=== PATIENT | female | born 1950 | race Caucasian/White ===

== ENCOUNTER 2016-07-03 17:28 | Inpatient (IN) | payer MEDICARE ==
[~2016-07-03] VITALS: Ht 160 cm; Wt 54.5 kg
[~2016-07-03 17:28] MED LIST: Z.0.NO CURRENT MEDS
[2016-07-03 17:30] VITALS: BP 119/76; PULSE 87; RESP 16; TEMP 97.9; O2SAT 97
--- NOTE | 2016-07-03 17:53 | PD ---
HPI . s/p fall Chief Complaint: Fall Time Seen by Provider: 17:52 Travel History International Travel<30 days: No Contact w/Intl Traveler<30days: No Traveled to known affect area: No History of Present Illness HPI 65-year-old female who reports no significant past medical history other than chronic left knee pain here with complaints of falling about 5:30 PM this evening. Me that she was picking up some food from [employer] when she was walking back home she slipped on uneven pavement and fell on outstretched right wrist and hit the right side of her for head on the concrete. She denies any loss of consciousness or syncopal episode. Here in the ED she is complaining of right wrist pain, where there is an obvious deformity. She tells me that her pain is about a 10/10 in the wrist. Luckily she is left handed dominant. She denies any fever, chills, chest pain, nausea, vomiting, diarrhea, constipation or abdominal pain. She denies any weakness or fatigue. PFSH Past Medical History ?: Not Menopausal: Yes Past Surgical History Cholecystectomy: Yes Joint Replacement: Yes (LEFT KNEE) Social History Alcohol Use: No Tobacco Use: Yes (OCCASIONAL) Substance Use: No Allergies-Medications (Allergen,Severity, Reaction): Coded Allergies: No Known Allergies (Verified , 07/03/16) Reported Meds & Prescriptions Reported Meds & Active Scripts Active Reported No Current Meds (Miscellaneous Medication) [facility] General / Constitutional: No: Fever Eyes: No: Visual changes HENT: No: Headaches Cardiovascular: No: Chest Pain or Discomfort Respiratory: No: Shortness of Breath Gastrointestinal: No: Abdominal Pain Genitourinary: No: Dysuria Musculoskeletal: Positive: Pain (right wrist pain/ right side of head hurting) Skin: No Rash Neurologic: No: Weakness Psychiatric: No: Depression Endocrine: No: Polydipsia Hematologic/Lymphatic: No: Easy Bruising Physical Exam Narrative GENERAL: AAO x 3, no acute distress, Well-nourished, well-developed patient. SKIN: Warm and dry. No visible rashes. Small 0.5cm laceration on the right frontal area. Small abrasions on the forehead. HEAD: Normocephalic and atraumatic. EYES: No scleral icterus. No injection or drainage. EOM intact, PERRLA ENT: No nasal drainage noted. Mucous membranes pink. Airway patent. NECK: Supple, trachea midline. No JVD. CARDIOVASCULAR: Regular rate and rhythm without murmurs, gallops, or rubs. RESPIRATORY: Breath sounds equal bilaterally. No accessory muscle use. No rhonchi or rales. GASTROINTESTINAL: Abdomen soft, non-tender, nondistended. EXTREMITIES: right wrist + edema, ecchymosis and obvious deformity. + pain with slight touch BACK: Nontender without obvious deformity. No CVA tenderness. PSYCH: AAO x 3, normal affect. LACERATION LOCATION: [-] Right side for head temporal area LENGTH: [-] 0.5 cm NUMBER OF STITCHES/OLYA: Dermabond and Steri-Strips used REPAIR: The area of the laceration was prepped with Betadine and saline . The wound was copiously irrigated and explored without evidence of foreign body, tendon injury or neurovascular injury. The wound was closed using Steri-Strips and Dermabond. This was a single layer repair. A sterile dressing was applied. The patient was advised to keep the dressing clean and dry. Patient tolerated the procedure well. Data Data Last Documented VS Vital Signs Date Time Temp Pulse Resp B/P Pulse Ox O2 Delivery O2 Flow Rate FiO2 07/03/16 22:45 18 07/03/16 17:30 97.9 87 119/[address] Brain W/O Iv Contrast(Rout) (07/03/16 ) Wrist, Complete (Huo1exc) (07/03/16 18:02) Oxycodone-Acetamin 5-325 Mg (Percocet (07/03/16 18:15) Admit Order (Ed Use Only) (07/03/16 20:03) Ct Wrist W/O Contrast (07/03/16 ) Electrocardiogram (07/03/16 ) Complete Blood Count With Diff (07/03/16 20:04) Comprehensive Metabolic Panel (07/03/16 20:04) Coag Profile (07/03/16 20:04) Urinalysis - C+S If Indicated (07/03/16 20:04) Chest, Single Ap (07/03/16 ) Type And Screen (07/03/16 20:04) Admit To Inpatient (07/03/16 ) Vital Signs (Adult) Q4H (07/03/16 20:12) Activity Oob With Assistance (07/03/16 20:12) Architectural Practice Manager / Telemetry .CONTINUOUS (07/03/16 20:12) Diet Npo (07/04/16 Breakfast) Sodium Chloride 0.9% Flush (Ns Flush) (07/03/16 20:15) Sodium Chloride 0.9% Flush (Ns Flush) (07/03/16 21:00) Ondansetron Inj (Zofran Inj) (07/03/16 20:15) Basic Metabolic Panel (Bmp) (07/04/16 06:00) Complete Blood Count With Diff (07/04/16 06:00) Case Management Consult (07/03/16 20:12) Scd Bilateral/Knee High AMY.BID (07/03/16 20:12) Naloxone Inj (Narcan Inj) (07/03/16 20:15) Inpatient Certification (07/03/16 ) Morphine Inj (Morphine Inj) (07/03/16 20:30) Consult Orthopedic (07/03/16 ) Oxycodone-Acetamin 5-325 Mg (Percocet (07/03/16 22:00) Acetaminophen (Tylenol) (07/03/16 22:00) ^ Splint (07/03/16 21:59) Labs Laboratory Tests Test 07/03/16 20:05 White Blood Count 8.5 TH/MM3 Red Blood Count 4.36 MIL/MM3 Hemoglobin 13.4 GM/DL Hematocrit 39.5 % Mean Corpuscular Volume 90.6 FL Mean Corpuscular Hemoglobin 30.8 PG Mean Corpuscular Hemoglobin 34.0 % Concent Red Cell Distribution Width 13.3 % Platelet Count 473 TH/MM3 Mean Platelet Volume 6.8 FL Neutrophils (%) (Auto) 66.3 % Lymphocytes (%) (Auto) 24.2 % Monocytes (%) (Auto) 7.2 % Eosinophils (%) (Auto) 0.8 % Basophils (%) (Auto) 1.5 % Neutrophils # (Auto) 5.6 TH/MM3 Lymphocytes # (Auto) 2.1 TH/MM3 Monocytes # (Auto) 0.6 TH/MM3 Eosinophils # (Auto) 0.1 TH/MM3 Basophils # (Auto) 0.1 TH/MM3 CBC Comment DIFF FINAL Differential Comment Prothrombin Time 10.8 SEC Prothromb Time International 1.0 RATIO Ratio Activated Partial 24.2 SEC Thromboplast Time Sodium Level 135 MEQ/L Potassium Level 4.1 MEQ/L Chloride Level 99 MEQ/L Carbon Dioxide Level 25.4 MEQ/L Anion Gap 11 MEQ/L Blood Urea Nitrogen 19 MG/DL Creatinine 0.80 MG/DL Estimat Glomerular Filtration 72 ML/MIN Rate Random Glucose 94 MG/DL Calcium Level 8.5 MG/DL Total Bilirubin 0.2 MG/DL Aspartate Amino Transf 14 U/L (AST/SGOT) Alanine Aminotransferase 19 U/L (ALT/SGPT) Alkaline Phosphatase 76 U/L Total Protein 7.5 GM/DL Albumin 3.9 GM/DL [facility] Medical Decision Making Medical Screen Exam Complete: Yes Emergency Medical Condition: Yes Medical Record Reviewed: Yes Differential Diagnosis wrist fracture, forehead laceration, fall, less likely SAH, Narrative Course 65-year-old female who reports no significant past medical history other than chronic left knee pain here with complaints of falling about 5:30 PM this evening. Me that she was picking up some food from [employer] when she was walking back home she slipped on uneven pavement and fell on outstretched right wrist and hit the right side of her for head on the concrete. She denies any loss of consciousness or syncopal episode. Here in the ED she is complaining of right wrist pain, where there is an obvious deformity. She tells me that her pain is about a 10/10 in the wrist. Luckily she is left handed dominant. She denies any fever, chills, chest pain, nausea, vomiting, diarrhea, constipation or abdominal pain. She denies any weakness or fatigue. Patient seen and examined. Recommend x-ray of the right wrist and CT scan of the head. Laceration was cleaned and repaired with Dermabond as it was small. Xray of wrist : + displaced angulated fracture: recommend ortho, call placed Discussed with Dr. Pardo. She will need to be nothing by mouth after midnight. Will be placed a sugar tong splint. Ice and elevation. CT of the wrist was recommended. Preop labs ordered. Admission at [facility] was recommended. I discussed with Dr. JAMES. Patient was admitted to [facility] in anticipation of surgery tomorrow. I discussed all this with the patient She was understanding. Patient verbalized understanding of instructions, questions were answered, and thanked me for their care. I advised them if their condition worsens, please return to the nearest emergency room for further care. Last 24 hours Impressions Wrist X-Ray 07/03/16 1802 Signed Impressions: Service Date/Time: Sunday, July 03, 2016 18:22 - CONCLUSION: Angulated impacted fracture of the distal radius involving the articulating surface. Satisfactory carpal alignment. Jony Arteaga MD Head CT 07/03/16 0000 Signed Impressions: Service Date/Time: Sunday, July 03, 2016 18:13 - CONCLUSION: Visualized portion right maxillary sinus is opacified. Right frontal soft tissue swelling. Otherwise normal evaluation of the head; no evidence of acute intracranial trauma, fracture or extra-axial fluid collections. Jony Arteaga MD Procedures Procedure Narrative LACERATION LOCATION: [-] Right side for head temporal area LENGTH: [-] 0.5 cm NUMBER OF STITCHES/OLYA: Dermabond and Steri-Strips used REPAIR: The area of the laceration was prepped with Betadine and saline . The wound was copiously irrigated and explored without evidence of foreign body, tendon injury or neurovascular injury. The wound was closed using Steri-Strips and Dermabond. This was a single layer repair. A sterile dressing was applied. The patient was advised to keep the dressing clean and dry. Patient tolerated the procedure well. Diagnosis Primary Impression: Wrist fracture, closed Qualified Code: S62.101A - Wrist fracture, closed, right, initial encounter Additional Impression: Forehead laceration Qualified Code: S01.81XA - Forehead laceration, initial encounter Admitting Information Admitting Physician Requests: Admit Patient Instructions: General Instructions Condition: Stable Sobia Hopkins Jul 03, 2016 17:53
[2016-07-03] MEDS ORDERED: oxyCODONE/ACETAMINOPHEN 5 MG/325 MG TAB PO ONE (18:15)
--- NOTE | 2016-07-03 18:39 | RADHPO ---
EXAM DATE/TIME: 07/03/2016 18:13 [facility] COMPARISON: No previous studies available for comparison. INDICATIONS : Trauma fall. RADIATION DOSE: 63.17 CTDIvol (mGy) MEDICAL HISTORY : None SURGICAL HISTORY : None. ENCOUNTER: Initial ACUITY: 1 day PAIN SCALE: 5/10 LOCATION: cranial TECHNIQUE: Multiple contiguous axial images were obtained of the head. Using automated exposure control and adj ustment of the mA and/or kV according to patient size, radiation dose was kept as low as reasonably a chievable to obtain optimal diagnostic quality images. FINDINGS: CEREBRUM: The ventricles are normal for age. No evidence of midline shift, mass lesion, hemorrhage or acute in farction. No extra-axial fluid collections are seen. POSTERIOR FOSSA: The cerebellum and brainstem are intact. The 4th ventricle is midline. The cerebellopontine angle i s unremarkable. EXTRACRANIAL: Mild soft tissue swelling is identified in the right frontal region. The visualized portion of the or bits is intact. Visualized portion of the right maxillary sinus is opacified. SKULL: The calvaria is intact. No evidence of skull fracture. CONCLUSION: Visualized portion right maxillary sinus is opacified. Right frontal soft tissue swelling. Otherwise normal evaluation of the head; no evidence of acute intracranial trauma, fracture or extra- axial fluid collections. Jony Arteaga MD on July 03, 2016 at 18:35 Board Certified Radiologist. This report was verified electronically.
--- NOTE | 2016-07-03 18:54 | RADHPO ---
EXAM DATE/TIME: 07/03/2016 18:22 [facility] COMPARISON: No previous studies available for comparison. INDICATIONS : Trauma, fall. MEDICAL HISTORY : None. SURGICAL HISTORY : None. ENCOUNTER: Initial ACUITY: 1 day PAIN SCORE: 9/10 LOCATION: Right wrist FINDINGS: A compacted angulated fractures identified of the distal radius. Fracture extends into the articulate surface of the radius. Carpal alignment is well-maintained. Ulna appears intact. CONCLUSION: Angulated impacted fracture of the distal radius involving the articulating surface. Satisfactory carpal alignment. Jony Arteaga MD on July 03, 2016 at 18:51 Board Certified Radiologist. This report was verified electronically.
[2016-07-03] MEDS ORDERED: SODIUM CHLORIDE 0.9% FLUSH 5 ML FLUSH FLUSH PRN (20:15)
[2016-07-03] MEDS ORDERED: NALOXONE HCL 0.4 MG/ML AMP IV PRN (20:15)
[2016-07-03] MEDS ORDERED: ONDANSETRON HCL 4 MG/2 ML VIAL IVP PRN (20:15)
[2016-07-03 20:47] LABS: AUTOMATED NEUTROPHIL # 5.6 TH/MM3 (1.8-7.7); BASOPHIL # 0.1 TH/MM3 (0-0.2); BASOPHIL % 1.5 % (0.0-2.0); EOSINOPHIL # 0.1 TH/MM3 (0-0.4); EOSINOPHIL % 0.8 % (0.0-4.0); HEMATOCRIT 39.5 % (35.0-46.0); HEMO FLAGS DIFF FINAL; LYMPH % 24.2 % (9.0-44.0); LYMPHOCYTE # 2.1 TH/MM3 (1.0-4.8); MEAN CELL VOLUME 90.6 FL (80.0-100.0); MEAN CORPUSCULAR HEMOGLOBIN 30.8 PG (27.0-34.0); MONO % 7.2 % (0.0-8.0); NEUT % 66.3 % (16.0-70.0); PLATELET COUNT 473 TH/MM3 (150-450); RED BLOOD COUNT 4.36 MIL/MM3 (4.00-5.30); RED CELL DISTRIBUTION WIDTH 13.3 % (11.6-17.2); WHITE BLOOD COUNT 8.5 TH/MM3 (4.0-11.0)
--- NOTE | 2016-07-03 20:50 | RADHPO ---
EXAM DATE/TIME: 07/03/2016 20:11 [facility] COMPARISON: No previous studies available for comparison. INDICATIONS : Trauma, fall. RADIATION DOSE: 10.91 CTDIvol (mGy) MEDICAL HISTORY : None SURGICAL HISTORY : None. ENCOUNTER: Initial ACUITY: 1 day PAIN SCALE: 10/10 LOCATION: Right wrist TECHNIQUE: Volumetric scanning of the wrist was performed. Using automated exposure control and adjustment of t he mA and/or kV according to patient size, radiation dose was kept as low as reasonably achievable to obtain optimal diagnostic quality images. FINDINGS: BONES: A compacted comminuted fracture is identified of the distal radius. The fracture extends into the rad iocarpal joint. There is positive ulnar variance. JOINTS: Radiocarpal joint involvement from fractured distal radius as described. Carpal alignment is well-pre served. SOFT TISSUES: Muscles, tendons, and neurovascular structures are grossly unremarkable. No evidence of mass, organi zed fluid collection or foreign body. CONCLUSION: Compacted comminuted fracture the distal radius involving the radiocarpal joint. Jony Arteaga MD on July 03, 2016 at 20:47 Board Certified Radiologist. This report was verified electronically.
--- NOTE | 2016-07-03 20:53 | RADHPO ---
EXAM DATE/TIME: 07/03/2016 20:19 [facility] COMPARISON: No previous studies available for comparison. INDICATIONS : Trauma to chest post fall today MEDICAL HISTORY : None. SURGICAL HISTORY : None. ENCOUNTER: Initial ACUITY: 1 day PAIN SCORE: 0/10 LOCATION: Bilateral chest FINDINGS: Lungs are well aerated without evidence of pneumothorax. There is no evidence of consolidating airspa ce disease. Interstitial prominence is noted. Heart and mediastinal structures are unremarkable. Clavicles are intact. There is no evidence of displaced rib fracture. CONCLUSION: Interstitial lung disease which appears chronic. No evidence of acute cardiopulmonary process. No evidence of displaced rib fracture. Jony Arteaga MD on July 03, 2016 at 20:50 Board Certified Radiologist. This report was verified electronically.
[2016-07-03 20:54] LABS: CHLORIDE 99 MEQ/L (98-107); POTASSIUM 4.1 MEQ/L (3.5-5.1); SODIUM (NA) 135 MEQ/L (136-145)
[2016-07-03 20:58] LABS: ANION GAP 11 MEQ/L (5-15); BICARBONATE 25.4 MEQ/L (21.0-32.0); BLOOD UREA NITROGEN 19 MG/DL (7-18)
[2016-07-03] MEDS: SODIUM CHLORIDE 0.9% FLUSH 5 ML FLUSH FLUSH SCH (21:00)
[2016-07-03 21:01] LABS: ALT (GPT) 19 U/L (10-53); APTT (PATIENT) 24.2 SEC (24.3-30.1); AST (GOT) 14 U/L (15-37); GLOMERULAR FILTRATION RATE 72 ML/MIN (>89); PROTHROMBIN TIME - PATIENT 10.8 SEC (9.8-11.6)
[2016-07-03 21:02] LABS: TOTAL BILIRUBIN ADULT 0.2 MG/DL (0.2-1.0)
[2016-07-03 21:04] LABS: ALKALINE PHOSPHATASE 76 U/L (45-117)
[2016-07-03] MEDS ORDERED: ACETAMINOPHEN 500 MG CPLT PO PRN (22:00)
[2016-07-03] MEDS ORDERED: oxyCODONE/ACETAMINOPHEN 5 MG/325 MG TAB PO PRN (22:00)
[2016-07-03 22:05] VITALS: BP 119/63; PULSE 76; RESP 16; O2SAT 96
[2016-07-03] MEDS: MORPHINE SULFATE 4 MG/ML INJ IV PUSH PRN (22:10)
[2016-07-04 00:19] VITALS: BP 116/62; PULSE 75; RESP 18; O2SAT 96
[2016-07-04] MEDS: MORPHINE SULFATE 4 MG/ML INJ IV PUSH PRN ×4 (02:05→13:56)
[2016-07-04 02:21] VITALS: BP 105/56; PULSE 71; RESP 18; O2SAT 97
[2016-07-04 04:47] VITALS: BP 116/60; PULSE 78; RESP 18; O2SAT 98
[2016-07-04 05:28] LABS: AUTOMATED NEUTROPHIL # 6.2 TH/MM3 (1.8-7.7); BASOPHIL # 0.1 TH/MM3 (0-0.2); EOSINOPHIL # 0.1 TH/MM3 (0-0.4); EOSINOPHIL % 0.7 % (0.0-4.0); HEMATOCRIT 36.9 % (35.0-46.0); HEMO FLAGS DIFF FINAL; LYMPH % 20.4 % (9.0-44.0); LYMPHOCYTE # 1.8 TH/MM3 (1.0-4.8); MEAN CELL VOLUME 89.7 FL (80.0-100.0); MEAN CORPUSCULAR HEMOGLOBIN 30.4 PG (27.0-34.0); MEAN CORPUSCULAR HGB CONC 33.9 % (32.0-36.0); MONO % 8.9 % (0.0-8.0); PLATELET COUNT 439 TH/MM3 (150-450); RED BLOOD COUNT 4.11 MIL/MM3 (4.00-5.30); RED CELL DISTRIBUTION WIDTH 13.2 % (11.6-17.2)
[2016-07-04 05:38] LABS: POTASSIUM 3.8 MEQ/L (3.5-5.1)
[2016-07-04 05:41] LABS: BICARBONATE 26.4 MEQ/L (21.0-32.0)
[2016-07-04 07:11] VITALS: BP 108/57; PULSE 79; RESP 18; TEMP 97.5; O2SAT 98
[2016-07-04] MEDS: SODIUM CHLORIDE 0.9% FLUSH 5 ML FLUSH FLUSH SCH (07:21)
[2016-07-04 09:35] VITALS: BP 115/62
[2016-07-04] MEDS ORDERED: *morphine SULFATE 8 MG/ML PERIprocedure ONLY ONE (11:43)
[2016-07-04] MEDS ORDERED: MORPHINE SULFATE 8 MG/ML INJ IV PUSH ONE (11:46)
[2016-07-04] MEDS ORDERED: PHENYLEPH/NS 1000 MCG/10 ML SYR IV ONE (12:00)
[2016-07-04] MEDS ORDERED: ePHEDrine/NS 25 MG/5 ML SYR IV ONE (12:00)
[2016-07-04] MEDS ORDERED: PROPOFOL 200 MG/20 ML AMP IV ONE (12:00)
[2016-07-04] MEDS ORDERED: ONDANSETRON HCL 4 MG/2 ML VIAL IV PUSH ONE (12:00)
[2016-07-04] MEDS ORDERED: BUPIVACAINE HCL PF 0.25% 30 ML VIAL ONE ×2 (16:19→17:19)
[2016-07-04] MEDS ORDERED: LIDOCAINE HCL 1% 50 ML VIAL ONE ×2 (16:20→17:20)
[2016-07-04] MEDS ORDERED: GENTAMICIN SULFATE 80 MG/2 ML VIAL ONE ×2 (16:20→17:20)
[2016-07-04] MEDS ORDERED: ceFAZolin INJ 1,000 MG VIAL IV ONE (17:57)
--- NOTE | 2016-07-04 18:44 | PD.OP ---
cc: Duran Lane MD Operative Report Date of Surgery: Jul 04, 2016 Preoperative Diagnosis: Fracture right distal radius, comminuted, three-part Postoperative Diagnosis: Same Procedure: Open treatment internal fixation right distal radius with volar plate and screws Anesthesia: Gen. Surgeon: Duran Lane Shredder Picker(s): RAYRAY Lopez Operation and Findings: EBL: 50 cc INDICATION: This patient is a 65-year-old female who fell yesterday. She sustained a displaced right distal radius fracture with an intra-articular component. She presents for surgical treatment. NOTE: Arlyn Lopez PA-C was present for the entire surgical procedure as my records management assistant. In my medical opinion her skill and care was necessary for proper management of this patient. PROCEDURE: The patient was brought to the operating room and anesthetized in the supine position. This patient was positioned with the arm on the arm table. Fluoroscopy was used for visualization. A timeout was done. Antibiotics were given within 1 hour time window. The right arm was scrubbed with alcohol followed by Hibiclens followed by ChloraPrep and draped sterilely. A tourniquet was placed after exsanguination the tourniquet was inflated to 250 mmHg. A volar incision was made along the flexor carpi radialis tendon. The pronator quadratus was lifted from its radial attachment. The fracture was visualized. This was brought into a reduced position and held. A volar plate was positioned and held provisionally. Intraoperative x-ray showed anatomic alignment. Multiple distal locking screws were placed as well as shaft screws. The fracture was reduced anatomically. Intraoperative x-rays were obtained confirming the same. The tourniquet was let down. Hemostasis was controlled with the bipolar cautery. The wound was dry. The fascia was closed with 2-0 Vicryl suture. The skin and subcutaneous tissue was approximated with interrupted 3-0 nylon in a mattress fashion. A sterile dressing and a splint was applied. The patient was awakened and taken to the recovery room in satisfactory condition. COMPANY: [employer], locking plate Duran Lane MD Jul 04, 2016 18:43
[2016-07-04] MEDS ORDERED: DO NOT ADM ANY ANTICOAGULANT DRUGS XX PRN (19:15)
[2016-07-04] MEDS ORDERED: fentaNYL CITRATE 250 MCG/5 ML AMP ONE (19:20)
--- NOTE | 2016-07-04 19:21 | RADRPT ---
EXAM DATE/TIME: 07/04/2016 18:32 [facility] COMPARISON: No previous studies available for comparison. INDICATIONS : ORIF, Right Wrist. MEDICAL HISTORY : None. SURGICAL HISTORY : None. ENCOUNTER: Initial ACUITY: 1 day PAIN SCORE: Non-responsive. LOCATION: Right Wrist. FINDINGS: Side plate and multiple screws traverse the distal radius with excellent anatomical alignment of the fracture fragments. CONCLUSION: Intact postsurgical changes for technique. Gaye Baptiste MD on July 04, 2016 at 19:19 Board Certified Radiologist. This report was verified electronically.
[2016-07-04] MEDS ORDERED: LACTATED RINGER'S 1000 ML INJ 1,000 ML IV SCH (19:23)
[2016-07-04] MEDS ORDERED: NORC5TAB PO (19:25)
[2016-07-04] MEDS ORDERED: diphenhydrAMINE HCL 25 MG CAP PO PRN (19:30)
[2016-07-04] MEDS ORDERED: MAGNESIUM HYDROXIDE SUSP 30 ML CUP PO PRN (19:30)
[2016-07-04] MEDS ORDERED: NALOXONE HCL 0.4 MG/ML AMP IV PRN (19:30)
[2016-07-04] MEDS ORDERED: SODIUM CHLORIDE 0.9% FLUSH 5 ML FLUSH IVF PRN (19:30)
[2016-07-04] MEDS ORDERED: ACETAMINOPHEN/HYDROcodone 325 MG/5 MG TAB PO PRN ×2 (19:30)
[2016-07-04] MEDS ORDERED: ONDANSETRON HCL 4 MG/2 ML VIAL IVP PRN (19:30)
[2016-07-04] MEDS ORDERED: Post-op Orders (for Pharmacy) MISC XX ONE (19:30)
[2016-07-04] MEDS ORDERED: ZOLPIDEM TARTRATE 5 MG TAB PO PRN (19:30)
[2016-07-04] MEDS ORDERED: MORPHINE SULFATE 30 MG/30 ML PCA IV SCH (19:30)
[2016-07-04] MEDS ORDERED: MORPHINE SULFATE 8 MG/ML INJ IV PUSH PRN (19:30)
[2016-07-04] MEDS: SODIUM CHLORIDE 0.9% FLUSH 5 ML FLUSH IVF SCH (21:55)
[2016-07-04] MEDS: DOCUSATE SODIUM 50 MG/SENNA 8.6 MG TAB PO SCH (21:56)
[2016-07-04] MEDS: PCA - TOTAL MG MORPHINE DELIVERED PER SHIFT SCH (21:56)
--- NOTE | 2016-07-04 22:22 | MB ---
cc: JUAN EPPERSON DATE OF CONSULTATION: 07/04/2016 REASON FOR CONSULTATION Fracture of the distal radius. HISTORY This patient is a very pleasant 65-year-old female. She presented to the emergency room after falling at about 05:30 yesterday afternoon. Apparently she was picking up some food from [employer] and was walking back home when she tripped on an even pavement. She fell with her outstretched right wrist and hand. She denied any loss of consciousness. She presented complaining of right wrist pain. There was an obvious deformity. The patient apparently has a chronic left leg condition which may have contributed to her fall. She denies any constitutional symptoms. PAST SURGICAL HISTORY 1. Cholecystectomy. 2. Previous left total knee replacement surgery. SOCIAL HISTORY Denies alcohol. Notes occasional ethanol. Denies substance abuse. ALLERGIES TO MEDICATIONS NONE ARE KNOWN. ACTIVE MEDICATIONS She indicates no current medications. REVIEW OF SYSTEMS GENERAL: No fever. EYES: No visual changes. HEENT: No headache. CARDIOVASCULAR: No chest pain or discomfort. RESPIRATORY: No shortness of breath. GASTROINTESTINAL: No abdominal pain. GENITOURINARY: No dysuria. MUSCULOSKELETAL: Right wrist pain with deformity, now presently in a splint. SKIN: No rashes. NEUROLOGIC: No weakness. PSYCHIATRIC: No depression. ENDOCRINE: No polydipsia. PHYSICAL EXAMINATION GENERAL: Alert, cooperative, elderly female appearing at or older than her stated age. HEENT: Normocephalic, atraumatic. Pupils equal, round, reactive to light and accommodation. Extraocular motions intact. NECK: Supple. CHEST: Clear. HEART: Regular rate and rhythm. ABDOMEN: Soft, nontender, normoactive sounds. MUSCULOSKELETAL: She has a laceration near her right temporal region which has been had been Dermabonded with Steri-Strips. She has a chronic deformity of her left knee. Her right wrist is in a splint. She wiggles her fingers. Her cap refill is normal. IMAGING X-rays reviewed and review of radiologist's interpretation shows a comminuted intraarticular fracture of the right distal radius with displacement. CT scan also confirms same of the intraarticular component which is not significantly displaced intraarticularly. IMPRESSION Fracture right distal radius, intraarticular, three-part. PLAN Open treatment, internal fixation right distal radius with volar plates and screws. CONSENT The risks of surgery including infection, bleeding, loss of motion, continued pain, need for further surgery, neurologic and vascular injury. The patient understands these issues and wishes to press on with surgery as outlined above. MD RENALDO Kelly/BJF /6:47 PM /9:53 PM
--- NOTE | 2016-07-04 23:51 | EKG ---
Date Performed: 07/03/2016 Time Performed: 20:31:30 PTAGE: 65 years EKG: Sinus rhythm ST junctional depression is nonspecific Borderline ECG PREVIOUS TRACING : 08/15/1992 13.07 Compared to prior tracing no significant change DOCTOR: Isauro Hutchison Interpretating Date/Time 07/04/2016 23:49:37
[2016-07-05 00:11] VITALS: BP 120/65; PULSE 98; RESP 20; TEMP 98.1; O2SAT 94
[2016-07-05 04:00] VITALS: BP 132/70; PULSE 76; RESP 16; TEMP 97.9; O2SAT 95
[2016-07-05] MEDS: PCA - TOTAL MG MORPHINE DELIVERED PER SHIFT SCH (05:19)
--- NOTE | 2016-07-05 07:55 | PD.ORT.PN ---
Subjective Subjective Remarks No complaints Objective Vitals Vital Signs Date Time Temp Pulse Resp B/P Pulse Ox O2 Delivery O2 Flow Rate FiO2 07/05/16 07:07 Room Air 07/05/16 04:00 97.9 76 16 132/70 95 07/05/16 00:11 98.1 98 20 120/65 94 07/04/16 20:05 16 07/04/16 20:02 90 12 122/67 94 Nasal Cannula 4 07/04/16 19:45 93 12 127/69 94 Nasal Cannula 4 07/04/16 19:30 92 12 112/63 93 Nasal Cannula 4 07/04/16 19:15 97.0 91 12 124/64 96 Nasal Cannula 4 07/04/16 14:00 98.5 81 17 128/71 95 07/04/16 10:08 97 07/04/16 10:07 97 Nasal Cannula 2 07/04/16 10:07 98.5 81 17 143/85 89 07/04/16 09:35 78 18 115/62 98 I/O 07/04/16 07/04/16 07/04/16 07/05/16 07/05/16 07/05/16 07:00 15:00 23:00 07:00 15:00 23:00 Intake Total 1400 ml 800 ml Output Total 75 ml Balance 1325 ml 800 ml Intake Oral 240 ml 240 ml IV Total 360 ml 560 ml Other 800 ml Output Urine Total 0 ml Estimated Blood Loss 75 ml Other 0 ml # Voids 1 1 Result Diagram: 07/04/16 0520 07/04/16 0520 Objective Remarks Appears very comfortable. Dressing intact. Mild ecchymosis. No significant swelling. Sensation normal Assessment & Plan Ortho Post Op Day #: 1 Problem List: Assessment and Plan Fracture right distal radius. ORIF, volar plate: POD #1. PLAN: Discharge to home Continue with sling and splint Follow-up in 3 weeks. Anticipate going to removable splint at that time if everything is okay Duran Lane MD Jul 05, 2016 07:55
[2016-07-05 08:00] VITALS: BP 109/58; PULSE 84; RESP 18; TEMP 97; O2SAT 93
[2016-07-05 08:10] VITALS: PULSE 81
[2016-07-05] MEDS: SODIUM CHLORIDE 0.9% FLUSH 5 ML FLUSH IVF SCH (08:15)
[2016-07-05] MEDS: DOCUSATE SODIUM 50 MG/SENNA 8.6 MG TAB PO SCH (08:15)
[2016-07-05] MEDS ORDERED: MULTIVITAMINS/MINERALS THERAPEUTIC TAB PO SCH (09:00)
[2016-07-05 10:14] VITALS: O2SAT 92
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
== END 2016-07-05 11:56 | disposition home or self-care (01) | DRG 512 ==
LOC: PHEFT 17:28 → PHEDA 20:05 → PHEDH 07-04 00:05 → HPAC 07-04 11:41 → N06B 07-04 20:52
PROVIDERS: ADMIT Internal Medicine; ATTEND Internal Medicine
PROC: 0HQ0XZZ Repair Scalp Skin, External Approach (ICD-10-PCS; 2016-07-03)
PROC: 0PSH04Z Reposition Right Radius with Internal Fixation Device, Open Approach (ICD-10-PCS; principal; 2016-07-04 17:35)
DX: S52.571A Other intraarticular fracture of lower end of right radius, initial encounter for closed fracture (principal); F17.210 Nicotine dependence, cigarettes, uncomplicated; S01.81XA Laceration without foreign body of other part of head, initial encounter; W01.0XXA Fall on same level from slipping, tripping and stumbling without subsequent striking against object, initial encounter; Y93.01 Activity, walking, marching and hiking; Y92.410 Unspecified street and highway as the place of occurrence of the external cause; Z96.652 Presence of left artificial knee joint
CPT/HCPCS: 12001; 70450; 71010; 73100; 73110; 73200; 76000; 80048; 80053; 85025; 85610; 85730; 86850; 86900; 86901; 93005; 94150; C1713; J0690; J1580; J2270; J2370; J2405; J3010; J7120

== ENCOUNTER 2016-07-10 09:00 | Emergency (ER) | payer MEDICARE ==
[~2016-07-10] VITALS: Ht 160 cm; Wt 55.5 kg
[~2016-07-10 09:00] MED LIST changes: +NORC5TAB PO
[2016-07-10 09:05] VITALS: BP 123/67; PULSE 86; RESP 16; TEMP 97.5; O2SAT 96
--- NOTE | 2016-07-10 10:12 | PD ---
HPI Chief Complaint: I&C Tech Problem Time Seen by Provider: 09:53 Travel History International Travel<30 days: No Contact w/Intl Traveler<30days: No Traveled to known affect area: No History of Present Illness HPI This patient reports that she has swelling in her right arm where she had surgery. She is worried that her splint is too tight. No repeat injury. She does not of sensory loss. No fever. Symptoms severity is mild to moderate PFSH Past Medical History Anxiety: No Depression: Yes Cancer: No Cardiovascular Problems: Yes Diminished Hearing: No Gastrointestinal Disorders: No Genitourinary: No Hypertension: No Musculoskeletal: Yes Neurologic: Yes Reproductive: No Respiratory: No Tetanus Vaccination: Unknown Influenza Vaccination: No ?: Not Menopausal: Yes Past Surgical History Abdominal Surgery: Yes (cholysectomy) Cholecystectomy: Yes Joint Replacement: Yes (LEFT KNEE) Pacemaker: No Social History Alcohol Use: No Tobacco Use: Yes (05/06 PPD) Substance Use: Yes (marijuana) Allergies-Medications (Allergen,Severity, Reaction): Coded Allergies: No Known Allergies (Verified , 07/10/16) Reported Meds & Prescriptions Reported Meds & Active Scripts Active Gray (Hydrocodone-Acetaminophen) 5-325 mg Tab 1 Tab PO Q6H PRN Review of Systems General / Constitutional: No: Fever HENT: No: Headaches Cardiovascular: No: Chest Pain or Discomfort Physical Exam Narrative Right wrist: I removed her padding. There is no splint. Incision looks clean without dehiscence or sign of infection. She does have some ecchymosis of the wrist and some swelling of the hand. She is neurovascularly intact SKIN: Inspection shows no rash or ulcers. Palpation shows no induration or nodules. Psych: Normal mood and affect. Normal insight and judgment. Data Data Last Documented VS Vital Signs Date Time Temp Pulse Resp B/P Pulse Ox O2 Delivery O2 Flow Rate FiO2 07/10/16 09:05 97.5 86 16 123/67 96 MDM Medical Decision Making Medical Screen Exam Complete: Yes Emergency Medical Condition: Yes Medical Record Reviewed: Yes Differential Diagnosis Splint too tight, dehiscence, wound infection Narrative Course I have reviewed the patient's electronic medical record. Patient had recent wrist surgery and discharged a few days ago. Her follow-up visit in about 2 weeks I removed all her padding and redressed it so it is not tight Gave her a sling to help her elevate No sign of dehiscence or infection and she is neurovascularly intact She should call her orthopedist to report her symptoms and get any further recommendations Diagnosis Primary Impression: Swelling of right upper extremity Additional Instructions: Elevate right arm Wear sling Follow with orthopedist Med/Other Pt SpecificInfo: Other Disposition: 01 DISCHARGE HOME Condition: Stable Darío Smith MD Jul 10, 2016 10:12
== END 2016-07-10 10:54 | disposition home or self-care (01) ==
LOC: PHEFT 09:00
DX: M79.89 Other specified soft tissue disorders (principal); F17.210 Nicotine dependence, cigarettes, uncomplicated; Z98.890 Other specified postprocedural states
CPT/HCPCS: 99283